=== PATIENT | female | born 2005 | race Hispanic/Latino ===

== ENCOUNTER 2024-11-17 21:43 | Emergency (ER) | payer BC ==
[~2024-11-17] VITALS: Ht 154.9 cm; Wt 54.4 kg
[2024-11-17] MEDS: MIDAZOLAM HCL 1 MG/ML 2ML VIAL IVP ONE (22:00)
[2024-11-17] MEDS: MIDAZOLAM HCL 1 MG/ML 2ML VIAL ONE (22:00)
--- NOTE | 2024-11-17 22:09 | ERN ---
General Chief Complaint: Anxiety/Panic Attack Stated Complaint: NAUSEA, VOMITING X 1 EPISODE, HYPERVENTILATION Time Seen by MD: 22:02 Source: family History of Present Illness Initial Comments 19-year-old female previously healthy comes in with altered mental status panic attack crying out difficult to keep calm difficult to keep oriented. [place] and had two wine coolers followed by emesis followed by this mental crisis. Family was with her the entire time they do not think that the wine coolers were adulterated. Patient does seem to recognize her mother and seems somewhat oriented to place. I have given her 2 mg of Versed IV to calm her down. Allergies: Coded Allergies: No Known Drug Allergies (Unverified Allergy, Unknown, 11/17/24) Past Medical History Past Medical History: No Pertinent History Past Surgical History: None ROS Dictation Impossible to obtain review of systems from the patient. He has had emesis twice in the ED. Physical Exam General Appearance: (+) severe distress, (+) anxious Orientation: (+) alert Eye: bilateral eye normal inspection, bilateral eye PERRL, bilateral eye EOMI Eyes Comment Pupils appear dilated Ear, Nose, Throat: (+) hearing grossly normal, (+) normal ENT inspection, (+) moist mucous membraine Neck: (+) normal inspection, (+) supple, (+) full range of motion, (+) no JVD Respiratory: (+) chest non-tender, (+) lungs clear, (+) well ventilated Heart: (+) tachycardia Vascular: (+) no edema, (+) normal peripheral pulse, (+) no JVD Gastrointestinal: (+) soft, (+) non-tender, (+) bowel sound present Extremities: (+) normal range of motion, (+) non-tender Results Laboratory and Microbiology Lab and Micro Result Laboratory Tests Test 11/17/24 22:05 11/17/24 23:05 White Blood Count 5.4 K/uL (4.8-10.8) Red Blood Count 4.54 MIL/uL (4.00-5.50) Hemoglobin 13.2 g/dL (12.0-16.0) Hematocrit 38.9 % (36-48) Mean Corpuscular Volume 85.7 fL (80-100) Mean Corpuscular Hemoglobin 29.1 pg (27.0-33.0) Mean Corpuscular Hemoglobin Concent 33.9 g/dL (32.0-36.0) Red Cell Distribution Width 13.4 % (11.0-15.5) Platelet Count 251 K/uL (130-400) Mean Platelet Volume 10.3 fL (7.5-10.5) Immature Granulocyte % (Auto) 0.4 % (0-1) Neutrophils (%) (Auto) 56.2 % (40.0-77.0) Lymphocytes (%) (Auto) 38.1 % (21.0-51.0) Monocytes (%) (Auto) 4.4 % (3.0-13.0) Eosinophils (%) (Auto) 0.2 % (0.0-8.0) Basophils (%) (Auto) 0.7 % (0.0-5.0) Neutrophils # (Auto) 3.0 K/uL (1.8-7.7) Lymphocytes # (Auto) 2.1 K/uL (1.0-4.8) Monocytes # (Auto) 0.2 K/uL (0.1-1.0) Eosinophils # (Auto) 0.01 K/uL (0.00-0.70) Basophils # (Auto) 0.04 K/uL (0.00-0.20) Absolute Immature Granulocyte (auto 0.02 K/uL (0-1) Nucleated Red Blood Cells 0.0 % (0.0-0.19) Sodium Level 137 mmol/L (136-145) Potassium Level 3.4 mmol/L (3.5-5.1) L Chloride Level 102 mmol/L (101-111) Carbon Dioxide Level 26 mmol/L (21-32) Blood Urea Nitrogen 9 mg/dL (7-18) Creatinine 0.8 mg/dL (0.5-1.0) Glomerular Filtration Rate Calc 107 mL/min (>90) Random Glucose 112 mg/dL (70-105) H Total Calcium 8.1 mg/dL (8.5-10.1) L Total Bilirubin 0.3 mg/dL (0.2-1.0) Aspartate Amino Transf (AST/SGOT) 20 U/L (10-37) Alanine Aminotransferase (ALT/SGPT) 17 U/L (12-78) Alkaline Phosphatase 83 U/L (50-136) Total Protein 6.9 g/dL (6.0-8.3) Albumin 4.1 g/dL (3.5-5.0) Serum Alcohol 218 mg/dL (0-10) H Urine Color COLORLESS (YELLOW) Urine Appearance CLEAR (CLEAR) Urine pH 6.5 (5.0-8.0) Urine Specific [place] 1.007 (1.001-1.031) Urine Protein NEGATIVE mg/dL (NEGATIVE) Urine Glucose (UA) NEGATIVE mg/dL (NEGATIVE) Urine Ketones NEGATIVE mg/dL (NEGATIVE) Urine Occult Blood NEGATIVE (NEGATIVE) Urine Nitrate NEGATIVE (NEGATIVE) Urine Bilirubin NEGATIVE mg/dL (NEGATIVE) Urine Urobilinogen 0.2 mg/dL (0.2-1.0) Urine Leukocyte Esterase NEGATIVE [place]/uL Urine HCG, Qualitative NEGATIVE (NEGATIVE) Urine Opiates Screen NEGATIVE (NEGATIVE) Urine Barbiturates Screen NEGATIVE (NEGATIVE) Urine Phencyclidine Screen NEGATIVE (NEGATIVE) Urine Amphetamines Screen NEGATIVE (NEGATIVE) Urine Benzodiazepines Screen POSITIVE (NEGATIVE) H Urine Cocaine Screen NEGATIVE (NEGATIVE) Urine Marijuana (THC) Screen NEGATIVE (NEGATIVE) Labs Reviewed?: Yes MDM I gave patient 2 mg of Versed IV she is only partially calmed down now I may give her another mg of Versed and five mg of Haldol. We will proceed with Toxicology workup possibly CT head usual labs to rule out infection abnormality of electrolytes. Patient's CBC chemistry panel and urine were all negative with the following exceptions. Patient's blood alcohol level greater than 200 and urine tox screen positive for the benzos that we gave her. Patient has calmed down now to the point that mother feels comfortable taking her home so we are discharging the patient to custody of her mother. Patient has calmed down now it seems we were dealing with a strange reaction to a blood alcohol level greater than 200. Patient is alert and oriented and I think is safe to go home with her mother. ED Course Orders Procedure Category Date Status Time Midazolam Hcl (Versed) PHA 11/17/24 Complete 22:00 Midazolam Hcl (Versed) PHA 11/17/24 Complete 21:49 Haloperidol Inj PHA 11/17/24 Complete (Haldol Inj) 22:30 Alcohol, Blood LAB 11/17/24 Complete 22:10 Cbc With Differential LAB 11/17/24 Complete 22:10 Comprehensive LAB 11/17/24 Complete Metabolic Panel 22:10 Drug Screen Urine LAB 11/17/24 Complete 22:10 Urinalysis Profile LAB 11/17/24 Complete 22:10 ,Urine Test LAB 11/17/24 Complete 22:10 Current Medications Medications (Trade) Dose Ordered Sig/James Route PRN Reason Start Time Stop Time Status Last Admin Dose Admin Haloperidol Lactate (Haldol Inj) 1 mg ONCE ONCE IV 11/17/24 22:30 11/17/24 22:31 DC Midazolam HCl (Versed) 2 mg ONCE ONCE IVP 11/17/24 22:00 11/17/24 22:01 DC 11/17/24 22:00 Midazolam HCl (Versed) 2 mg STK-MED ONCE .ROUTE 11/17/24 21:49 11/17/24 21:49 DC Vital Signs Date Time Temp Pulse Resp B/P (MAP) Pulse Ox O2 Delivery O2 Flow Rate FiO2 11/18/24 00:22 98.1 84 18 128/63 98 Room Air* 0 21 11/17/24 23:34 98.4 78 20 116/65 98 Room Air* 0 21 11/17/24 21:55 98.8 113 18 117/89 98 Room Air* 0 21 11/17/24 21:46 97.5 111 24 117/96 99 Room Air 0 DX & DISP Disposition: Discharge Departure Impression: Primary Impression: Alcohol abuse Condition: Stable Additional Instructions: Please return to the emergency room if patient has seizures or worsening psychosis from the alcohol intoxication. Referrals: SELF,REFERRAL (PCP) PATRICIA HERNANDEZ MD Nov 17, 2024 22:09
[2024-11-17 22:22] LABS: BASOPHILS # (AUTO) 0.04 K/uL (0.00-0.20); BASOPHILS % (AUTO) 0.7 % (0.0-5.0); EOSINOPHILS # (AUTO) 0.01 K/uL (0.00-0.70); EOSINOPHILS % (AUTO) 0.2 % (0.0-8.0); HEMATOCRIT 38.9 % (36-48); IMMATURE GRANULOCYTE ABSOLUTE 0.02 K/uL (0-1); LYMPHOCYTES # (AUTO) 2.1 K/uL (1.0-4.8); LYMPHOCYTES % (AUTO) 38.1 % (21.0-51.0); MEAN CORPUSCULAR HEMOGLOBIN 29.1 pg (27.0-33.0); MEAN CORPUSCULAR HGB CONC 33.9 g/dL (32.0-36.0); MEAN CORPUSCULAR VOLUME 85.7 fL (80-100); MONOCYTES # (AUTO) 0.2 K/uL (0.1-1.0); MONOCYTES % (AUTO) 4.4 % (3.0-13.0); NEUTROPHILS % (AUTO) 56.2 % (40.0-77.0); PLATELET COUNT (AUTO) 251 K/uL (130-400); RED BLOOD CELL COUNT(AUTO) 4.54 MIL/uL (4.00-5.50); RED CELL DISTRIBUTION WIDTH 13.4 % (11.0-15.5); WHITE BLOOD COUNT (AUTO) 5.4 K/uL (4.8-10.8)
[2024-11-17 22:36] LABS: CREATININE 0.8 mg/dL (0.5-1.0); POTASSIUM 3.4 mmol/L (3.5-5.1)
[2024-11-17 22:40] LABS: ALBUMIN 4.1 g/dL (3.5-5.0); BILIRUBIN,TOTAL 0.3 mg/dL (0.2-1.0); TOTAL PROTEIN, SERUM 6.9 g/dL (6.0-8.3)
[2024-11-17 23:13] LABS: APPEARANCE,URINE CLEAR (CLEAR); BILIRUBIN,URINE NEGATIVE (NEGATIVE); COLOR,URINE COLORLESS (YELLOW); GLUCOSE, URINE (UA) NEGATIVE (NEGATIVE); KETONES,URINE NEGATIVE (NEGATIVE); LEUKOCYTE ESTERASE ,URINE NEGATIVE Leu/uL (NEGATIVE); NITRATE,URINE NEGATIVE (NEGATIVE); OCCULT BLOOD,URINE NEGATIVE (NEGATIVE); PH,URINE 6.5 (5.0-8.0); PROTEIN,URINE NEGATIVE (NEGATIVE); UROBILINOGEN,URINE 0.2 mg/dL (0.2-1.0)
[2024-11-17 23:14] LABS: ADD UA MICROSCOPIC NO
[2024-11-17 23:16] LABS: HCG,QUALITATIVE URINE NEGATIVE (NEGATIVE)
[2024-11-17 23:23] LABS: AMPHET/METH SCREEN,URINE NEGATIVE (NEGATIVE); BARBITURATE SCREEN, URINE NEGATIVE (NEGATIVE); BENZODIAZEPINES SCREEN,URINE POSITIVE (NEGATIVE); CANNABINOID SCREEN,URINE NEGATIVE (NEGATIVE); COCAINE SCREEN,URINE NEGATIVE (NEGATIVE); OPIATE SCREEN,URINE NEGATIVE (NEGATIVE); PHENCYCLIDINE SCREEN,URINE NEGATIVE (NEGATIVE)
[2024-11-17] MEDS: HALOPERIDOL INJ 5 MG/ML VIAL IV ONE (23:32)
[2024-11-18 00:22] VITALS: BP 128/63; PULSE 84; RESP 18; TEMP 98.1; O2SAT 98
== END 2024-11-18 00:44 | disposition home or self-care (01) ==
LOC: EDH 21:43
DX: F10.10 Alcohol abuse, uncomplicated (principal); Z79.899 Other long term (current) drug therapy
CPT/HCPCS: 99284; 96374; 80053; 80305; 85025; 81025; 36415; 81003; J1630; J2250